=== PATIENT | male | born 1985 | race Caucasian/White ===

== ENCOUNTER 2016-10-07 16:53 | Emergency (ER) | payer SELFPAY ==
[2016-10-07 18:17] LABS: HEMOGLOBIN 14.9 gm/dl (14.0-17.5); RED BLOOD COUNT 4.61 M/UL (4.20-5.50); WHITE BLOOD COUNT 15.9 K/UL (4.5-11.0)
[2016-10-07 18:35] LABS: BUN/CREATININE RATIO 14 (0-10)
== END 2016-10-07 23:12 | disposition home or self-care (01) ==
LOC: ER1 16:53
PROVIDERS: Specialist/Technologist Athletic Trainer
DX: H66.91 Otitis media, unspecified, right ear (principal); F17.200 Nicotine dependence, unspecified, uncomplicated
CPT/HCPCS: 36415; 80053; 83690; 85025; 87081; 87880; 99283